=== PATIENT | female | born 1975 | race Caucasian/White ===

== ENCOUNTER 2018-04-30 17:56 | Outpatient (REF) | payer BC, SELFPAY ==
[2018-05-04 14:10] LABS: Chlamydia Result Negative; GC Result Negative
== END 2018-04-30 18:16 ==
LOC: LBN 17:56
PROVIDERS: PCP Nurse Practitioner; Visit Provider Nurse Practitioner Women's Health
DX: Z11.3 Encounter for screening for infections with a predominantly sexual mode of transmission (principal)
CPT/HCPCS: 87491; 87591

== ENCOUNTER 2018-05-04 00:52 | Outpatient (CLI) | payer BC, SELFPAY ==
--- NOTE | 2018-05-04 16:00 | DI.MAMMO_ITS ---
SYMPTOMS/DIAGNOSIS: SCREENING, Z12.31 MAMMOGRAM: Mammograms were interpreted according to the usual protocol including computer analysis with CAD system, tomosynthesis and C view imaging. This is a baseline examination. The breasts are composed of scattered fibroglandular densities, breast density Category B. No suspicious masses or suspicious microcalcifications are seen. IMPRESSION: Category I B, negative mammogram. Yearly screening mammography is recommended. [facility] ASSESSMENT OF FINDINGS: Negative. Category 1. Patient will receive a letter notifying them of these results. BI-RADS category B. There are scattered areas of fibroglandular density.
== END 2018-05-04 01:12 ==
PROVIDERS: PCP Nurse Practitioner; Visit Provider Nurse Practitioner
DX: Z12.31 Encounter for screening mammogram for malignant neoplasm of breast (principal)
CPT/HCPCS: 77063; 77067

== ENCOUNTER 2018-07-10 16:49 | Outpatient (REF) | payer BC, SELFPAY ==
--- NOTE | 2018-07-10 16:00 | PAPFT_PTH ---
PATIENT: Ashlie Acuna LOC: [facility] U#:[id number] AGE/SX: 42/F ROOM: RE07/10/[address]: Kiersten Stewart NP : 1975 BED: DIS: 07/10/2018 SPEC #: [id number] RECD: 07/10/18 17:28 STATUS: LAURIE ADAMSON #: [id number] ROQUE: 07/10/18 16:[address]: Kiersten Stewart NP DEPT: [facility] Cytology RECD BY: Yolanda Guzman ENTERED: 07/10/18 17:28 SP TYPE: PAPFT [place] DR: Monica Yates APRN Tissues: 1 - CX/ENDOCX FOR PAP SMEARS Procedures: PAP THIN PREP/[facility] Screening HPV DNA PROBE Comments: [id number]
== END 2018-07-10 17:09 ==
LOC: LBN 16:49
PROVIDERS: PCP Nurse Practitioner; Visit Provider Nurse Practitioner Women's Health
DX: Z12.4 Encounter for screening for malignant neoplasm of cervix (principal); Z11.51 Encounter for screening for human papillomavirus (HPV)
CPT/HCPCS: 88142; 87624

== ENCOUNTER 2019-05-11 13:21 | Outpatient (CLI) | payer BC, SELFPAY ==
[2019-05-11 15:07] LABS: TSH (W/Ref FT4) 2.21 uIU/mL (0.36-3.74)
== END 2019-05-11 13:41 ==
PROVIDERS: PCP Nurse Practitioner; Visit Provider Nurse Practitioner
DX: E66.9 Obesity, unspecified (principal)
CPT/HCPCS: 36415; 84443

== ENCOUNTER 2019-11-04 01:46 | Outpatient (CLI) | payer BC, SELFPAY ==
--- NOTE | 2019-11-04 08:15 | DI.MAMMO_ITS ---
EXAM: MG MAMMO SCREENING MAMMO SCREENING chair wall CLINICAL HISTORY: screening,Z12.39 TECHNIQUE: Mammograms were interpreted according to the usual protocol including computer analysis w [employer] CAD system, tomosynthesis and C-view imaging. COMPARISON: 2019 FINDINGS: The breasts are composed of scattered fibroglandular densities, Breast Density category B. No suspicious masses or suspicious microcalcifications are seen. No skin thickening or abnormal axillary lymph nodes are seen. There has been no significant change from prior exams. IMPRESSION: BI-RADS Category 1, Negative mammogram Yearly screening mammography is recommended. Breast Density Category B, scattered fibroglandular densities.
== END 2019-11-04 02:06 ==
PROVIDERS: PCP Nurse Practitioner; Visit Provider Nurse Practitioner
DX: Z12.31 Encounter for screening mammogram for malignant neoplasm of breast (principal); R92.2 Inconclusive mammogram
CPT/HCPCS: 77063; 77067

== ENCOUNTER 2019-11-16 09:57 | Outpatient (CLI) | payer BC, SELFPAY ==
--- NOTE | 2019-11-16 09:45 | DI.RAD_ITS ---
EXAM: XR HIP LT COMPLETE AP PELVIS CLINICAL HISTORY: L hip pain. TECHNIQUE: 2D digital imaging was performed. COMPARISON: No exams were available for comparison FINDINGS: BONES: No acute fracture is present. No bony destructive lesion is seen. JOINTS: No dislocation present. SOFT TISSUE: Normal. Note is made of an intrauterine device. IMPRESSION: Unremarkable radiographs of the left hip. Unremarkable radiographs of the pelvis DATA REPOSITORY: RADIATION DOSE DELIVERED:
== END 2019-11-16 10:17 ==
PROVIDERS: PCP Nurse Practitioner; Referring Provider Nurse Practitioner; Visit Provider Physician Assistant
DX: M25.552 Pain in left hip (principal)
CPT/HCPCS: 73502

== ENCOUNTER 2019-11-22 01:04 | Outpatient (CLI) | payer BC, SELFPAY ==
--- NOTE | 2019-11-22 06:45 | DI.MRI_ITS ---
EXAM: MR LOWER JOINT LT WO CLINICAL HISTORY: L HIP PAIN/GROIN PAIN,? HIP PATHOLOGY,?OVARIAN CYST,?HERNIA,M25.552. TECHNIQUE: Multiplanar multisequence MRI was performed. COMPARISON: CR XR HIP LT COMPLETE AP PELVIS from 11/16/2019 FINDINGS: There is a subchondral cyst in the superior right acetabulum and a tiny cyst in the superior right femoral head. There are no hip joint effusions. The marrow signal appears normal. No tendon abnorm alities are identified. An IUD is noted within the uterus. The uterus is unremarkable. There is a dominant follicle on the right ovary. The bladder is unremarkable. There is no evidence of a hernia . IMPRESSION: Subchondral cyst in the superior right acetabulum. No left hip abnormality is seen. DATA REPOSITORY:
[2019-11-22 08:13] LABS: HCT 38.6 % (36.0-46.0); HGB 12.4 g/dL (11.2-15.7); MCH 26.1 pg (27.0-33.0); MCHC 32.1 % (32.0-36.0); MCV 81.3 fL (80-95); MPV 9.5 fL (8.0-11.0); Platelet Count 265 10^3/uL (130-400); RBC 4.75 10^6/uL (3.93-5.22); RDW 13.7 % (11.7-14.6); RDW-SD 40.2 fL; WBC 10.71 10^3/uL (4.4-10.8)
[2019-11-22 08:20] LABS: Hemoglobin A1C 6.3 % (3.8-5.6)
[2019-11-22 09:17] LABS: ALT 33 U/L (14-59); AST 14 U/L (15-37); Albumin 3.8 g/dL (3.4-5.0); Alkaline Phosphatase 100 U/L (46-116); Anion Gap 12.4 mmol/L (3-11); BUN 10 mg/dL (7-18); Bilirubin, Total 0.4 mg/dL (0.2-1.0); CO2 23.6 mmol/L (21.0-32.0); CREATININE 0.92 mg/dL (0.55-1.02); Calcium 8.7 mg/dL (8.5-10.1); Calculated LDL 80 mg/dL (<100); Chloride 104 mmol/L (98-107); Cholesterol 142 mg/dL (<200); Glucose 129 mg/dL (74-106); HDL Cholesterol 36 mg/dL (40-60); Potassium 4.2 mmol/L (3.5-5.1); Sodium 140 mmol/L (136-145); TSH (W/Ref FT4) 2.08 uIU/mL (0.36-3.74); Total Protein 7.1 g/dL (6.4-8.2); Triglyceride 131 mg/dL (<150)
== END 2019-11-22 01:24 ==
PROVIDERS: PCP Nurse Practitioner; Visit Provider Orthopaedic Surgery
DX: M85.48 Solitary bone cyst, other site (principal); M25.552 Pain in left hip
CPT/HCPCS: 36415; 73721; 80053; 80061; 85027; 83036; 84443

== ENCOUNTER 2019-12-14 09:10 | Outpatient (CLI) | payer BC, SELFPAY ==
[2019-12-16 02:42] LABS: Patient Race White; SARS-CoV-2 RNA Undetected (Undetected); SARS-CoV-2 Specimen Source Nasopharynx
== END 2019-12-14 09:30 ==
PROVIDERS: PCP Nurse Practitioner; Visit Provider Nurse Practitioner Adult Health
DX: R50.9 Fever, unspecified (principal); R09.81 Nasal congestion; R53.83 Other fatigue
CPT/HCPCS: U0003

== ENCOUNTER 2019-12-17 14:09 | Outpatient (REF) | payer BC, SELFPAY ==
[2019-12-17 14:56] LABS: Abs Immature Grans 0.04 10^3/uL (0.0-0.06); Absolute Eosinophil Count 0.24 10^3/uL (0.0-0.7); Absolute Lymphocyte Count 1.29 10^3/uL (1.2-3.4); Basophils % 0.2; Eosinophils % 1.8; HCT 41.9 % (36.0-46.0); HGB 13.3 g/dL (11.2-15.7); Immature Grans % 0.3; Lymphocytes % 9.8; MCHC 31.7 % (32.0-36.0); MPV 10.4 fL (8.0-11.0); Neutrophils % 83.9; Nucleated RBC 0 %; Platelet Count 325 10^3/uL (130-400); RBC 5.11 10^6/uL (3.93-5.22); RDW 13.4 % (11.7-14.6); RDW-SD 39.9 fL; WBC 13.14 10^3/uL (4.4-10.8)
[2019-12-17 15:00] LABS: Absolute Basophil Count 0.03 10^3/uL (0.0-0.2); Absolute Monocyte Count 0.53 10^3/uL (0.1-0.8); Absolute Neutrophil Count 11.02 10^3/uL (1.2-6.7)
[2019-12-20 11:56] LABS: Lyme Ab w Rflx to Lyme Confirm Negative (Negative)
[2019-12-20 23:16] LABS: Anaplasma phagocytophilum Negative (Negative); B. miyamotoi PCR Negative (Negative); Babesia divergens/MO-1 Negative (Negative); Babesia duncani Negative (Negative); Babesia microti Negative (Negative); Ehrlichia chaffeensis Negative (Negative); Ehrlichia ewingii/canis Negative (Negative); Ehrlichia muris eauclairensis Negative (Negative)
== END 2019-12-17 14:29 ==
LOC: LBN 14:09
PROVIDERS: PCP Nurse Practitioner; Visit Provider Nurse Practitioner Adult Health
DX: R53.81 Other malaise (principal); R53.83 Other fatigue; R51 Headache; R50.9 Fever, unspecified; J34.89 Other specified disorders of nose and nasal sinuses
CPT/HCPCS: 87449; 87798; 85025; 86618

== ENCOUNTER 2020-01-01 11:35 | Outpatient (REF) | payer BC, SELFPAY ==
[2019-12-31 21:07] LABS: Abs Immature Grans 0.05 10^3/uL (0.0-0.06); Absolute Basophil Count 0.04 10^3/uL (0.0-0.2); Absolute Eosinophil Count 0.43 10^3/uL (0.0-0.7); Absolute Lymphocyte Count 2.44 10^3/uL (1.2-3.4); Absolute Monocyte Count 0.51 10^3/uL (0.1-0.8); Absolute Neutrophil Count 8.94 10^3/uL (1.2-6.7); Basophils % 0.3; Eosinophils % 3.5; HCT 39.8 % (36.0-46.0); HGB 12.7 g/dL (11.2-15.7); Immature Grans % 0.4; Lymphocytes % 19.7; MCH 26.2 pg (27.0-33.0); MCHC 31.9 % (32.0-36.0); MCV 82.2 fL (80-95); MPV 10.7 fL (8.0-11.0); Monocytes % 4.1; Nucleated RBC 0 %; Platelet Count 335 10^3/uL (130-400); RBC 4.84 10^6/uL (3.93-5.22); RDW 13.6 % (11.7-14.6); RDW-SD 40.1 fL; WBC 12.41 10^3/uL (4.4-10.8)
[2019-12-31 21:52] LABS: ALT 51 U/L (14-59); AST 27 U/L (15-37); Albumin 4.3 g/dL (3.4-5.0); Alkaline Phosphatase 106 U/L (46-116); Anion Gap 13.2 mmol/L (3-11); BUN 10 mg/dL (7-18); Bilirubin, Total 0.4 mg/dL (0.2-1.0); CO2 22.8 mmol/L (21.0-32.0); CREATININE 1.01 mg/dL (0.55-1.02); Calcium 9.2 mg/dL (8.5-10.1); Chloride 103 mmol/L (98-107); Glucose 96 mg/dL (74-106); Potassium 3.9 mmol/L (3.5-5.1); Sodium 139 mmol/L (136-145); Total Protein 7.5 g/dL (6.4-8.2)
[2020-01-01 14:52] LABS: Lipase 108 U/L (73-393)
== END 2020-01-01 11:55 ==
LOC: LBN 11:35
PROVIDERS: PCP Nurse Practitioner; Visit Provider Physician Assistant
DX: R10.11 Right upper quadrant pain (principal)
CPT/HCPCS: 80053; 83690; 85025

== ENCOUNTER 2020-09-20 02:18 | Outpatient (CLI) | payer BC, SELFPAY ==
[2020-09-20 11:57] LABS: Source Nasal/Nares
[2020-09-20 14:39] LABS: COVID-19 PCR Negative (Negative)
--- NOTE | 2020-09-22 06:49 | W.ANESPRE ---
General Info Date of Service Date Performed: 09/22/20 Height: 5 ft 6 in Weight: 112 kg Body Mass Index (BMI): 39.8 Meds Allergies and Home Medications Allergies Allergy/AdvReac Type Severity Reaction Status Date / Time Penicillins Allergy Severe Anaphylaxis Verified 09/22/20 06:43 Pollens Allergy Intermediate Rhinitis Uncoded 09/22/20 06:43 Home Medication Medication Instructions Recorded levonorgestrel 20 mcg/24 hours (6 1 insert IY ONCE 03/16/18 yrs) 52 mg intrauterine device multivitamin 1 tab PO DAILY 03/16/18 bupropion HCl 300 mg 24 hr tablet, 300 mg PO .qd #90 tab 04/06/18 extended release melatonin 5 mg tablet 5 mg PO HS PRN 04/06/18 lorazepam 0.5 mg tablet 0.5 mg PO DAILY PRN #14 tab 01/05/19 acetylcysteine 600 mg capsule 1,200 mg PO BID cap 04/16/19 hydrocortisone 2.5 % topical cream 1 applic TP .COMPLEX PRN #30 gm 05/11/19 lamotrigine 25 mg tablet 100 mg PO DAILY tab 03/13/20 topiramate 25 mg tablet 75 mg PO QHS tab 03/13/20 fluticasone propionate 50 2 spray ANTWON DAILY #16 gm 03/21/20 mcg/actuation nasal spray,suspension sertraline 100 mg tablet 100 mg PO DAILY 06/05/20 [facility] Active Problems Active Problems: Problem Status Onset Code Trochanteric bursitis of left hip M70.62 Labral tear of right hip joint S73.191A Labral tear of left hip joint S73.192A 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 Depression F32.9 RUQ abdominal pain R10.11 Malaise and fatigue R53.81, R53.83 Frontal sinus pain J34.89 Headache R51 Fever and chills R50.9 Left hip pain M25.552 Encounter for routine history and physical examination Z00.00 Sinusitis J32.9 Obesity E66.9 Melanocytic nevus D22.9 Anxiety F41.9 Polycystic ovarian disease E28.2 Kidney problem N28.9 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 [place] surgery Tobacco Smoking/Tobacco Use Status: Never Alcohol Alcohol Intake: current Alcohol intake frequency: a few times a month Substance Use Substance use: Never Substance use type: does not use Prental History History 0 Para Hx # Term Pregnancies Multiple births Hx # Pregnancies Ectopic pregnancies AB induced Hx Number of Living Children AB spontaneous Vital Signs and Lab Results Lab Results Blood Type / Crossmatch: No Data to Display Complete Blood Count: No Data to Display Complete Metabolic Panel: No Data to Display Liver Function Panel: No Data to Display Coagulation Panel: No Data to Display Cardiac Panel: No Data to Display Arterial Blood Gas: No Data to Display Venous Blood Gas: No Data to Display Pancreas Panel: No Data to Display Thyroid Panel: No Data to Display Infectious Disease: Coronavirus (COVID-19)(PCR) Negative (Negative) 09/20/20 11:28 09/20/20 Coronavirus 2019 Source Nasal/nares 09/20/20 11:28 09/20/20 Blood Cultures: No Data to Display Toxicology Panel: No Data to Display Panel: No Data to Display Anesthesia Assessment and Plan Anesthesia History Personal History: No History of Anesthesia Complications and PONV Family History: No Family History of Anesthesia Complications Exercise Tolerance Exercise Tolerance: Metabolic Equivalents>4 Pertinent Negatives Pertinent Negatives: No Symptoms of GERD, No Major Cardiovascular Symptoms or Complaints (+heart murmur ), No Major Pulmonary Symptoms or Complaints (+ FRANCISCA, childhod asthma, ), No History of CVA/TIA and Other (obesity, hyperglycemia, hyperthyroid) Cardiac & Pulmonary Exam Cardiac Exam: Normal S1/S2 Heart Sounds and Heart Murmur Present Pulmonary Exam: Clear Bilateral Breath Sounds Airway Exam Known Difficult Airway: No Mallampati Class: 1 Mouth Opening: Normal (> 3cm) Thyromental Distance: Less than 3 cm Neck Range of Motion: Full ROM Neck Circumference: Thick Teeth Condition: Normal Dentition ASA Classification ASA Score: ASA 3 Emergency Case?: No NPO Status NPO Status: NPO Clears >2 hours, Solids >8 hours Status Status: Negative HCG Anesthesia Plan Resuscitation Status: Full Code Anesthesia Technique: General Anesthesia Airway Planned: Endotracheal Tube Pain Management: Surgeon and patient request nerve block Monitors Used: Standard Monitors
[2020-09-22 07:38] VITALS: BMI 39.8
--- NOTE | 2020-09-22 08:24 | W.ANESNERVE ---
Nerve Block Single Injection Procedure Date and Time Date Performed: 09/22/20 Procedure Start: 07:49 Location Where Procedure Performed Procedure Location: Operating Room Procedure Stop: 07:59 Reason Performed: Postoperative Analgesia Requesting Provider: Imer Allison Timeout Performed Timeout Performed: Yes Monitoring Used ECG, Blood Pressure and SpO2 Sterility Sterility: Hand Hygiene, Surgical Cap, Surgical Mask, Sterile Gloves and Chlorhexidine Sedation Given During Procedure Sedation Given (Indicate Dose Given): No Sedation given Patient Mental Status Patient Mental Status: Performed under general anesthesia Nerve Block 1st Nerve Block: Laterality: Left Block Type: BRIDGET Needle / Catheter Used: 120mm SonoPlex II Local Anesthetic Bolus (Indicate Dose Given): Injected in 3-5ml increments after negative blood aspiration, Bupivacaine 0.5% Dose:: 10 cc and Exparel Dose:: 10 cc Additives (Indicate Dose Given): None Ultrasound: Sterile probe cover and gel used Ultrasound Image Saved?: Yes Nerve Stimulator: Not Used Paresthesia: None Procedure Tolerated: No Complications Procedure Outcome: Successful Performed By: Quynh Cruz Supervised By: Kristin Lihgt
== END 2020-09-20 02:19 | disposition home or self-care (01) ==
LOC: LBO 02:19
PROVIDERS: PCP Nurse Practitioner; Visit Provider Student in an Organized Health Care Education/Training Program
DX: Z20.822 Contact with and (suspected) exposure to COVID-19 (principal); Z01.818 Encounter for other preprocedural examination
CPT/HCPCS: 87635

== ENCOUNTER 2020-09-22 06:16 | Day surgery (SDC) | payer BC, SELFPAY ==
[2020-09-22] VITALS (8 sets, daily range): BP systolic 91–135; BP diastolic 39–73; PULSE 61–69; RESP 16–24; TEMP 36.2–36.7; O2SAT 96–100
[2020-09-22] MEDS: Lactated Ringers 1,000 ML 100 ML IV (07:06)
[2020-09-22] MEDS: CLINDAMYCIN 900 MG/50 ML BAG 50 MG IVPB (07:09)
[2020-09-22] MEDS: EPINEPHrine 30 MG/30 ML VIAL (09:49)
--- NOTE | 2020-09-22 10:07 | DI.RAD_ITS ---
Exam(s) XR HIP LT IN OR EXAM: XR HIP LT IN OR CLINICAL HISTORY: LEFT HIP, LABRAL TEAR, TROCH BURSITIS, IMPINGEMENT TECHNIQUE: 2D and realtime digital imaging was performed. CONTRAST MATERIAL: Refer to procedure report. COMPARISON: No exams were available for comparison FINDINGS: Fluoroscopy was provided for Dr. Allison during the performance of a repair of a left hip labral tear. Please refer to the procedure report for complete details. Ka,r=22.78 mGy IMPRESSION: RADIATION DOSE DELIVERED:
--- NOTE | 2020-09-22 10:38 | W.PM.DSUDISC ---
Discharge Plan Disposition Patient Disposition: HOME Condition: Stable Discharge Details Reason For Visit: Left hip surgery Attending Provider: Imer Allison Primary Care Provider: Monica Yates Home Meds and New Rx's Prescriptions: New naproxen 250 mg tablet 250 - 500 mg PO BID PRN (Reason: Moderate pain or swelling) Qty: 60 RF: 0 aspirin 81 mg tablet,delayed release (DR/EC) 81 mg PO DAILY 30 Days Qty: 30 RF: 0 oxycodone 5 mg tablet 5 - 10 mg PO Q4H PRN (Reason: moderate to severe pain) Qty: 16 RF: 0 Continued hydrocortisone 2.5 % cream 1 applic TP .COMPLEX PRN (Reason: Eczema) Qty: 30 RF: 3 lamotrigine 25 mg tablet 100 mg PO DAILY RF: 0 topiramate 25 mg tablet 75 mg PO QHS RF: 0 melatonin 5 mg tablet 5 mg PO HS PRNRF: 0 bupropion HCl 300 mg tablet extended release 24 hr 300 mg PO .qd Qty: 90 RF: 3 lorazepam 0.5 mg tablet 0.5 mg PO DAILY PRN (Reason: anxiety) Qty: 14 RF: 2 multivitamin tablet 1 tab PO DAILY RF: 0 levonorgestrel [Mirena] 20 mcg/24 hr (5 years) intrauterine device 1 insert IY ONCE RF: 0 acetylcysteine [NAC] 600 mg capsule 1,200 mg PO BID RF: 0 fluticasone propionate 50 mcg/actuation spray,suspension 2 spray ANTWON DAILY Qty: 16 RF: 12 sertraline 100 mg tablet 100 mg PO DAILY RF: 0 Discontinued ibuprofen 200 mg tablet 800 mg PO Q6H PRNRF: 0 Discharge Instructions Additional Instructions: Surgery: Hip arthroscopy with labral debridement and endoscopic iliotibial band release with trochanteric bursectomy Activity: Weightbearing as tolerated. May use crutches briefly as needed. Gentle range of motion about the hip. Progress to full activities over about 6-8 weeks. A physical therapy prescription will be provided in the office at follow-up if needed. Prescriptions: Aspirin 81 mg take 1 daily to prevent a blood clot for 30 days Naproxen 250 mg take 1-2 every 12 hours with a meal as needed for moderate pain Oxycodone 5 mg take 1-2 every 4-6 hours as needed for severe pain You may use [id number] Tylenol (acetaminophen) as needed for mild pain. These pain medications may be taken all at once or in different combinations as needed. Also, recommend Colace (docusate) as a stool softener as surgery and pain medicine cause constipation. Dressings: Leave dressing in place for 2-3 days. May then remove and leave open to air or cover incisions with Band-Aids. May shower after 5 days. Follow-up: 10-[address] Allison (1:00 PM on 10/03/20) Let us know right away if you develop any redness, drainage, fevers, chest pain, or trouble breathing. Do not drink alcohol or drive for at least 24 hours after anesthesia. Please call the office during business hours with any questions or concerns. Referrals: Imer Allison MD [ [facility] STAFF PHYSICIAN] - Discharge Orders Discharge Orders: Discharge Order (Routine); Ordered 09/22/20 Ordered By: Imer Allison DS: Diagnosis Discharge Diagnosis (1) Labral tear of left hip joint: Status: Acute (2) Trochanteric bursitis of left hip: Status: Acute (3) Femoral acetabular impingement: Status: Acute (4) Iliotibial band syndrome of left side: Status: Acute
--- NOTE | 2020-09-22 10:45 | W.PM.OP ---
Date of service: 09/22/20 Time of Service: 08:00 Operative Note Operative Note DATE OF PROCEDURE: 09/22/20 PRE-OP DIAGNOSIS: Left hip 1. Labral tear 2. Femoracetabular impingement 3. Iliotibial band syndrome 4. Trochanteric bursitis POST-OP DIAGNOSIS: same PROCEDURE: Left hip 1. Arthroscopic labral debridement, CPT# 08519 2. Endoscopic iliotibial band release, CPT# 97858 3. and trochanteric bursectomy, CPT# 63671) SURGEON: Imer Allison SOFTWARE ASSET MANAGER: Riky Adam ANESTHESIA TYPE: Local By Surgeon, General LMA/ETT and Primary Nerve Block (BRIDGET) Refer to Anesthesia Record ESTIMATED BLOOD LOSS: 5 COMPLICATIONS: None Patient was transported to: PACU Patient's condition: stable Indications: Please see complete medical record for details. Findings: Anterior and anterior superior cartilage delamination, thinning fraying and labral degenerative type tear. Under of cartilage services intact. Superior to posterior labrum intact. Mild femoral head cartilage thinning fibrillations about zone of anterior and anterior superior labral and cartilage injury. Inflamed trochanteric bursa. Procedure Description: In the operating room, general and regional anesthesia were induced. The patient was positioned supine on the [place] table. All bony prominences were well-padded. Preoperative antibiotics were administered. The correct patient, procedure, and side of the procedure were all verified prior to incision. Initially, appropriate hip joint distraction was confirmed under sterile technique releasing suction seal with the hip in slight abduction by carefully placing an 18-gauge spinal needle into the hip joint and performing an air arthrogram. The needle was removed, provisional traction released, and the hip prepped and draped in the usual sterile fashion. 30 cc of 0.5% bupivacaine containing epinephrine was infiltrated about the planned portal sites and deeply over the greater trochanter. Fluoroscopically, an anterolateral portal was established with hip under about 1 cm distraction. Traction start time as noted. Through the spinal needle, a nitinol wire was inserted and the needle removed. An 11 blade was used to create a portal sized incision about the Nitinol wire. A small 4 mm dilator was passed atraumatically over the nitinol wire through the capsule into the hip joint. The nitinol wire was removed. A 6 mm dilator was then passed over the smaller one into the hip joint and the initial dilator removed. The blunt end of a switching stick was then passed into the hip joint and the last dilator removed. The camera sleeve was then inserted over the switching stick, the switch to removed, and the arthroscope attached to the camera sleeve. An initial dry arthroscopy of the hip joint confirmed appropriate viewing portal location about the equator laterally. Using a combination of fluoroscopic guidance and arthroscopic triangulation a modified mid anterior portal was established in a similar fashion with a spinal needle and sequential dilators. Care was taken to ensure the portal was in an appropriate position and outside the labrum. A banana blade was inserted anteriorly over half pipe. The capsule was released distal to the labrum working towards the anterolateral portal. The camera was then switched to the anterior portal, the anterolateral portal location was confirmed to be appropriate, and the banana blade brought in the anterolateral portal and capsule opened here as well. Complete intraportal capsulotomy was not performed as it was not necessary for visualization and debridement. The camera was then switched back to the anterolateral portal. A complete diagnostic arthroscopy of the hip was performed with relevant findings noted above. The labrum was probed and found to be somewhat degenerative type injury of the contralateral junction, but otherwise relatively stable not requiring repair. Attention was then turned to the anterior, anterosuperior, and to a lesser extent lateral chondral labral injury. Alternating through both working and viewing portals, a combination of radiofrequency ablator and mechanical shaver was used to debride unstable labral and chondral tissue and achieve a stable margin as well as somewhat denervated the labral majority remnant. The blunt end of a switching stick was left in the anterior portal, but appropriately withdrawn from hip joint. The camera was withdrawn similarly. Under direct visualization traction was gradually released at 51 minutes. The femoral head neck junction was inspected about the zone of labral injury. The hip was brought through internal rotation, external rotation, and deep flexion with rotation. There was mild cartilage fraying and fibrillations, which were lightly debrided with a mechanical shaver. There was no impingement on the labrum or CAM lesion. The decision was made to omit any femoroplasty. The limited capsulotomy had well apposed tissue ends and was not formally closed. The hip was drained of arthroscopic fluid. Under fluoroscopic guidance, a switching stick and arthroscope were inserted localizing the iliotibial band over the greater trochanter. A distal anterior lateral portal was created. Blunt dissection and the mechanical shaver were used to resect fat and overlying tissue about the center of the iliotibial band and carefully expose the anterior and posterior margins. Once there was adequate exposure of the IT band, the greater trochanter was again localized under fluoroscopic guidance with a spinal needle inserted through the skin down to bone. This central area was marked. A [place] blade was brought in and used to create a 2 cm longitudinal incision in line with the IT band fibers as well as extending it in a cruciate fashion with 2 cm incisions anteriorly and posteriorly. The radiofrequency ablator was used to achieve hemostasis. The mechanical shaver was then used to debride the IT band released edges exposing the trochanteric bursa. The mechanical shaver was then used to excise the trochanteric bursa taking care to protect musculature about the margins of the greater trochanter as well as neurovascular structures especially posteriorly. There was abundant deep adipose tissue, but good visualization of the vastus lateralis as well as gluteus medius was obtained confirming appropriate bursa excision. The hip was brought through range of motion including internal and external rotation and there was no impinging iliotibial band tissue or significant remaining pathologic bursa. The viewing and working portals were switched and appropriate IT band release, trochanteric bursa excision, and hemostasis confirmed. Suction was used to remove fluid from the endoscopic space. All portals were closed using 3-0 Monocryl in a buried fashion. Steri-Strips were applied over the incisions followed by Xeroform, dry 4 x 4 gauze, an ABD pad and secured with tape. The patient awoke from anesthesia without complication and was transferred to the recovery room in a stable condition.
[2020-09-22] MEDS: oxyCODONE 5 MG TAB PO (11:29)
--- NOTE | 2020-09-22 11:37 | W.ANESPOSTOP ---
Postoperative Evaluation Date, Time and Location Date Performed: 09/22/20 Time Performed: 11:38 Patient Location: Day Surgery Unit Vital Signs Most Recent Imported Vital Signs: Most Recent Vital Signs Temp Pulse Resp BP Pulse Ox 36.4 C L 64 17 107/56 L 96 09/22/20 11:10 09/22/20 11:10 09/22/20 11:10 09/22/20 11:10 09/22/20 11:10 Pain Score Most Recent Pain Score: Most Recent Pain Score Pain Level 3 09/22/20 11:38 Assessment Mental Status: Awake (Alert & Oriented to Patient Baseline) Airway and Respiratory Function: Patent airway with normal (patient baseline) respiratory exam Cardiovascular Function: Hemodynamically Stable Hydration Status: Adequately Hydrated Nausea & Vomiting: No Nausea or Vomiting Pain: Pain is tolerable per patient Peripheral Nerve Block: Regional nerve block not resolved at time of post operative discharge
--- NOTE | 2020-09-27 07:58 | W.ANESNERVE ---
Nerve Block Single Injection Procedure Date and Time Date Performed: 09/22/20 Procedure Start: 07:49 Location Where Procedure Performed Procedure Location: Operating Room Procedure Stop: 07:59 Reason Performed: Postoperative Analgesia Requesting Provider: Imer Allison Timeout Performed Timeout Performed: Yes Monitoring Used ECG, Blood Pressure, SpO2, ETCO2 and See EMR for corresponding vital signs Sterility Sterility: Hand Hygiene, Surgical Cap, Surgical Mask, Sterile Gloves and Chlorhexidine Sedation Given During Procedure Sedation Given (Indicate Dose Given): No Sedation given Patient Mental Status Patient Mental Status: Performed under general anesthesia Nerve Block 1st Nerve Block: Laterality: Left Block Type: BRIDGET Needle / Catheter Used: 120mm SonoPlex II Local Anesthetic Bolus (Indicate Dose Given): Injected in 3-5ml increments after negative blood aspiration, Bupivacaine 0.5% Dose:: 10 cc and Exparel Dose:: 10 cc Additives (Indicate Dose Given): None Ultrasound: Sterile probe cover and gel used Ultrasound Image Saved?: Yes Nerve Stimulator: Not Used Paresthesia: None Procedure Tolerated: No Complications Procedure Outcome: Successful Performed By: Quynh Cruz Supervised By: Kristin Light
== END 2020-09-22 12:55 | disposition home or self-care (01) ==
PROVIDERS: PCP Nurse Practitioner; Visit Provider Student in an Organized Health Care Education/Training Program
PROC: (CPT 29860; principal; 2020-09-22 07:30)
DX: S73.192A Other sprain of left hip, initial encounter (principal); M70.62 Trochanteric bursitis, left hip; M25.852 Other specified joint disorders, left hip; M76.32 Iliotibial band syndrome, left leg
CPT/HCPCS: 29862; 27062; 27305; 76942; 73501; J1100; J1885; J2001; J2405; J2704

== ENCOUNTER → 2021-11-12 11:42 | Outpatient (CLI) | payer BC, SELFPAY ==
--- NOTE | 2021-11-12 10:30 | DI.MAMMO_ITS ---
Exam(s) MAMMO SCREENING EXAM: MAMMO SCREENING CLINICAL HISTORY: screening,z12.39. TECHNIQUE: Bilateral full field digital CC and MLO mammographic images were obtained with 3D tomosyn thesis and utilizing computer aided detection (CAD). COMPARISON: Prior mammograms were reviewed, the most recent being October 2019. FINDINGS: There are no CAD designations. There are no new spiculated masses nor malignant appearing microcalcification groups. There is no significant architectural distortion nor skin thickening-retraction. IMPRESSION: No radiographic evidence of malignancy. BI-RADS Category 1 - Negative Breast Density - Category B - Scattered areas of fibroglandular density Breast density Category C or D implies that the patient has dense breast tissue. Dense breast tissue can make it harder to find cancer on a mammogram. Dense breast tissue is also associated with an incr eased risk of breast cancer. This information about the result of the mammogram report was provided to the patient to raise their awareness. Use this report when you speak with the patient about their risks for breast cancer, which includes their family history. At that time, you may recommend additional screening tests (Ultrasoun d or MRI) as these tests may add significant information. A negative radiographic report should not delay biopsy if a dominant or clinically suspicious mass is present. Up to ten percent of cancers are not identified on mammography. A negative report may reinforce clinical impression. Adenosis and dense breasts may obscure an underlying neoplasm. False positive reports average 6 to 10%. Patient will receive a letter notifying them of these results.
== END ==
PROVIDERS: PCP Nurse Practitioner; Visit Provider Nurse Practitioner
DX: Z12.31 Encounter for screening mammogram for malignant neoplasm of breast (principal)
CPT/HCPCS: 77063; 77067

== ENCOUNTER 2021-11-14 03:13 | Outpatient (CLI) | payer BC, SELFPAY ==
[2021-11-14 07:50] LABS: HCT 38.7 % (36.0-46.0); HGB 12.4 g/dL (11.2-15.7); MCH 26.5 pg (27.0-33.0); MCV 83 fL (80-95); MPV 9.4 fL (8.0-11.0); Platelet Count 233 10^3/uL (130-400); RBC 4.68 10^6/uL (3.93-5.22); RDW 13.2 % (11.7-14.6); RDW-SD 39.4 fL; WBC 11.12 10^3/uL (4.4-10.8)
[2021-11-14 08:07] LABS: Hemoglobin A1C 5.9 % (<5.7)
[2021-11-14 08:19] LABS: ALT 23 U/L (14-59); AST 18 U/L (15-37); Albumin 3.8 g/dL (3.4-5.0); Alkaline Phosphatase 101 U/L (46-116); BUN 10 mg/dL (7-18); Bilirubin, Total 0.5 mg/dL (0.2-1.0); CREATININE 0.9 mg/dL (0.55-1.02); Calcium 8.6 mg/dL (8.5-10.1); Calculated LDL 100 mg/dL (<100); Chloride 103 mmol/L (98-107); Cholesterol 174 mg/dL (<200); Glucose 129 mg/dL (74-106); HDL Cholesterol 41 mg/dL (40-60); Potassium 3.8 mmol/L (3.5-5.1); Sodium 138 mmol/L (136-145); TSH (W/Ref FT4) 3.34 uIU/mL (0.36-3.74); Total Protein 7.6 g/dL (6.4-8.2); Triglyceride 168 mg/dL (<150)
== END 2021-11-14 03:14 | disposition home or self-care (01) ==
LOC: LBO 03:13
PROVIDERS: PCP Nurse Practitioner; Visit Provider Nurse Practitioner
DX: I10 Essential (primary) hypertension (principal); F41.9 Anxiety disorder, unspecified; F32.9 Major depressive disorder, single episode, unspecified; R73.09 Other abnormal glucose; E66.9 Obesity, unspecified
CPT/HCPCS: 36415; 80053; 80061; 85027; 83036; 84443